=== PATIENT | male | born 2000 | race Two or more races ===

== ENCOUNTER → 2021-05-12 12:55 | Outpatient (BNVA) | payer MEDICAID, SELFPAY | PROVIDERS: PCP Internal Medicine; Referring Provider Internal Medicine; Visit Provider Surgery | DX: E66.01 Morbid (severe) obesity due to excess calories (principal); D17.20 Benign lipomatous neoplasm of skin and subcutaneous tissue of unspecified limb | CPT/HCPCS: 99202 ==

== ENCOUNTER → 2022-03-03 13:13 | Outpatient (BNVA) | payer MEDICAID, SELFPAY | PROVIDERS: PCP Internal Medicine; Visit Provider Surgery | DX: D17.24 Benign lipomatous neoplasm of skin and subcutaneous tissue of left leg (principal) | CPT/HCPCS: 99202 ==

== ENCOUNTER 2022-04-28 10:44 | Outpatient (REF) | payer MEDICAID, SELFPAY ==
[2022-04-28 11:03] VITALS: BP 120/58; PULSE 69; RESP 16; TEMP 36.8; O2SAT 98; BMI 40.8
[2022-04-28 11:34] VITALS: BP 112/62; PULSE 57; RESP 16; O2SAT 96
--- NOTE | 2022-05-02 12:02 | W.PM.OPN ---
Operative Note Operative Note Date of Service: 04/28/22 Narrative: Preop diagnosis: Lipoma, anterior left thigh Postop diagnosis: The same Procedure: Excision of lipoma, left thigh under local anesthesia Surgeon: Cisco Damian MD The patient is a 21-year-old male with note of lipomatous mass on the anterior thigh on the left. He wanted this removed. He understood the technique of excision under local anesthesia and was aware of the risks, benefits, and alternatives. He was brought to the minor procedure room in supine position. The area of the lipomas prepped and draped. Lidocaine 1% was used for local anesthesia. I made an incision on the skin overlying the lipoma using blade 15. This was carried down through the full-thickness of the skin subcutaneous fat until the lipomas visualized. I sharply dissected the lipoma off the rest of subcutaneous layer until was delivered and sent as specimen. The lipoma was about 2. cm in diameter I closed the incision with full-thickness nylon 3-0 interrupted sutures. Dressings were applied. The procedure was completed. He tolerated procedure well. There were no immediate complications. Estimated blood loss was less than 5 cc.
== END 2022-04-28 10:45 | disposition home or self-care (01) ==
LOC: HO.MS 10:44
PROVIDERS: PCP Internal Medicine; Visit Provider Surgery
PROC: (CPT 27327; principal; 2022-04-28 11:30)
DX: D17.24 Benign lipomatous neoplasm of skin and subcutaneous tissue of left leg (principal)
CPT/HCPCS: 27327; 88304

== ENCOUNTER 2022-11-18 10:51 | Outpatient (REF) | payer MEDICAID, SELFPAY ==
--- NOTE | ~2022-11-18 | MM_ITS ---
EXAMINATION: MM DIAGNOSTIC DIGITAL BREAST TOMOSYNTHESIS, BILATERAL US BREAST TARGETED, RIGHT CLINICAL INFORMATION: Fullness/lump right breast inner quadrant. COMPARISON: Mammography: None available. TECHNIQUE: Digital breast tomosynthesis is performed in both the craniocaudal and mediolateral oblique views along with computer-aided detection (CAD). Synthesized 2D images are generated from the tomosynthesis. Additional spot magnification views of the left breast performed. Targeted right breast ultrasound. FINDINGS: There are scattered areas of fibroglandular density (ACR BI-RADS breast composition Category b). No abnormal dominant mass or suspicious grouping of microcalcifications is seen within the right breast. The targeted right breast ultrasound in region of palpable abnormality did not demonstrate any evidence of cystic or solid mass or region of abnormal distal sound shadowing. No edematous change within the parenchyma is noted. Images of the left breast demonstrated a grouping of calcifications about the deep inferior medial left breast. On further evaluation the calcifications are seen to lie within the skin. Results are discussed with the patient at time of visit. MM/MM tomosynthesis diagnostic BI IMPRESSION: No mammographic or ultrasound evidence of malignancy. ASSESSMENT: BI-RADS 1: Negative. RECOMMENDATION: Clinical follow-up.
== END 2022-11-18 10:52 | disposition home or self-care (01) ==
LOC: HO.MAMMO 10:51
PROVIDERS: PCP Internal Medicine; Visit Provider Internal Medicine
DX: N63.14 Unspecified lump in the right breast, lower inner quadrant (principal)
CPT/HCPCS: 76642; 77062; 77066

== ENCOUNTER 2024-01-02 16:06 | Outpatient (REF) | payer MEDICAID, SELFPAY ==
[2024-01-02 17:53] LABS: MANUAL DIFF FLAG NO
[2024-01-02 18:06] LABS: Basophils Absolute Auto 0.1 X10*3/uL (0.0-0.2); Basophils Percent Auto 0.9 % (0-2); Eosinophils Absolute Auto 0.2 X10*3/uL (0.0-0.4); Eosinophils Percent Auto 2.4 % (0-4); Imm Gran Abs Auto 0.05 X10*3/uL (0.00-0.03); Imm Gran Pct Auto 0.5 % (0.0-0.4); Lymphocytes Absolute Auto 2.5 X10*3/uL (1.2-4.9); Lymphocytes Percent Auto 24.7 % (20-40); Mean Corpuscular HGB Conc 32.6 g/dl (31.0-36.0); Mean Corpuscular Hemoglobin 28.1 pg (27.0-33.0); Mean Corpuscular Volume 86.3 fL (80.0-98.0); Mean Platelet Volume 12.3 fL (9.4-12.4); Monocytes Absolute Auto 0.7 X10*3/uL (0.1-1.2); Monocytes Percent Auto 6.7 % (2-11); Neutrophils Absolute Auto 6.6 x10*3/uL (2.0-8.3); Neutrophils Percent Auto 64.8 % (45-73); Platelet Count 266 X10*3/uL (160-400); Red Blood Count 5.33 X10*6/uL (4.60-5.80); White Blood Count 10.2 X10*3/uL (4.8-10.8)
[2024-01-02 18:10] LABS: Estimated Average Glucose 105 mg/dL; Hemoglobin A1c % 5.3 % (<6.0)
[2024-01-02 18:50] LABS: Alanine Aminotransferase 31 U/L (0-40); Albumin Level 4.3 g/dL (3.5-5.0); Alkaline Phosphatase 100 U/L (39-117); Anion Gap 16 (12-20); Aspartate Amino Transferase 19 U/L (5-37); Bilirubin Direct 0.1 mg/dL (0.0-0.5); Bilirubin Total 0.4 mg/dL (0.0-1.0); Blood Urea Nitrogen 11 mg/dL (9-16); Calcium 9.1 mg/dL (8.4-10.2); Carbon Dioxide 23 mmol/L (22-29); Chloride 107 mmol/L (96-108); Cholesterol 166 mg/dL (<200); Estimated Glomerular Filt Rate > 60; Glucose Random 74 mg/dL (60-115); HDL Cholesterol 32 mg/dL (>40); LDL Cholesterol Calculated 119 mg/dL (<100); Potassium 3.7 mmol/L (3.3-5.1); Sodium 142 mmol/L (135-145); Total Protein 7.5 g/dL (6.5-8.0); Triglycerides 78 mg/dL (<150)
[2024-01-03 08:10] LABS: ~HepC Num1 0.11 S/CO (0.00-0.79); ~Hepatitis C Antibody Nonreactive (Nonreactive)
[2024-01-04 16:43] LABS: RPR Rapid Plasma Reagin NON-REACTIVE (NON-REACTIVE)
[2024-01-05 17:02] LABS: HIV RNA PCR Qn Copies Not Detected Copies/mL; HIV RNA PCR Qn Log Copies Not Detected Log cps/mL
== END 2024-01-02 16:07 | disposition home or self-care (01) ==
LOC: HO.HHCL 16:06
PROVIDERS: Visit Provider Internal Medicine
DX: Z00.00 Encounter for general adult medical examination without abnormal findings (principal)
CPT/HCPCS: 36415; 80048; 80061; 80076; 83036; 85025; 86592; 86803; 87536; 87900